=== PATIENT | male | born 1935 | race Caucasian/White ===

== ENCOUNTER 2020-07-08 06:39 | Day surgery (SDC) | payer MEDICARE, OTHER ==
[2020-07-08] MEDS ORDERED: Propofol 200 MG/20 ML SDV IV ONE (06:40)
[2020-07-08] MEDS ORDERED: Sodium Chloride 0.9% 10 ML Syringe FLUSH PRN (06:45)
[2020-07-08] MEDS: Lactated Ringers 1,000 ML IV SCH (07:17)
[2020-07-08] MEDS: Albuterol/Ipratropium 3.0-0.5 MG/3 ML Neb Soln NEB ONE (07:22)
--- NOTE | 2020-07-08 08:20 | PCM.OPNOTE ---
- General Post-Op/Procedure Note Date of Surgery/Procedure: 07/08/20 Operative Procedure(s): egd with cold forceps biopsy Findings: gastritis hiatal hernia Schatzki's ring esophagitis Pre Op Diagnosis: dyspepsia. wt loss Post-Op Diagnosis: gastritis. hiatal hernia. Schatzki's ring. esophagitis [place] [facility] [place]geon: Tom Dockery Anesthesia Provider: Cody Lamb Pathology: stomach and distal esophagus Complications: None Condition: Good Free Text/Narrative:: see dictation [id number]
[2020-07-08 12:24] VITALS: BP 133/68; PULSE 56
--- NOTE | 2020-07-08 17:09 | OR ---
DATE OF OPERATION: 07/08/2020 SURGEON: Tom Dockery MD PROCEDURE PERFORMED: Esophagogastroduodenoscopy with cold forceps biopsy. PREOPERATIVE DIAGNOSIS: History of some dyspepsia and weight loss. POSTOPERATIVE DIAGNOSIS: Gastritis, hiatal hernia, Schatzki ring, and distal esophagitis. INDICATIONS FOR PROCEDURE: This is an 85-year-old white male who was initially referred with a finding of gallstones. On history and exam, they appeared to be asymptomatic. The patient exhibited no fatty food intolerance or pain that was suggestive of biliary colic. He, however, does note that his stomach "is off" and he has some discomfort in the epigastric area. He has noted a weight loss. He was offered and accepted an EGD as part of workup. DESCRIPTION OF OPERATION: After an excellent IV sedation was administered, the bite block was inserted, the flexible endoscope was passed without difficulty down the patient's esophagus into the stomach. Stomach was insufflated. Scope passed through the pylorus, second portion of duodenum, slowly withdrawn, and the following findings were noted. Duodenum was unremarkable. Stomach demonstrated a hiatal hernia, very prominent rugae and some erythema throughout. Biopsies were taken of both the antrum and along the body of the stomach. GE junction measured approximately 35 cm, and there was a Schatzki ring. Biopsies were taken of the Schatzki ring as well as the distal esophagus. The remainder of the esophageal exam was unremarkable. The patient tolerated the procedure well, was taken to recovery room. We will be sending him results by letter. /[id number] KINJAL/TANYA
== END 2020-07-08 09:45 | disposition home or self-care (01) ==
LOC: FB.SDS 06:39
PROVIDERS: ATTEND Surgery
DX: K29.50 Unspecified chronic gastritis without bleeding (principal); K22.2 Esophageal obstruction; K44.9 Diaphragmatic hernia without obstruction or gangrene; I10 Essential (primary) hypertension; E78.2 Mixed hyperlipidemia; G47.33 Obstructive sleep apnea (adult) (pediatric); Z90.49 Acquired absence of other specified parts of digestive tract; Z98.890 Other specified postprocedural states; Z79.899 Other long term (current) drug therapy; Z79.82 Long term (current) use of aspirin; Z88.8 Allergy status to other drugs, medicaments and biological substances
CPT/HCPCS: 00731; 43239; 88305; 88313; 88342; J2704; J7120; J7620-GY

== ENCOUNTER 2022-08-01 20:28 | Emergency (ER) | payer MEDICARE, OTHER ==
[2022-08-01] MEDS ORDERED: Amoxicillin 500 MG Cap PO ONE (20:29)
[2022-08-01] MEDS ORDERED: traMADol 50 MG Tab PO ONE (20:29)
[2022-08-01 21:11] VITALS: BP 137/72; PULSE 74
== END 2022-08-01 22:20 | disposition home or self-care (01) ==
LOC: FB.ED 20:28
DX: R68.84 Jaw pain (principal); K04.7 Periapical abscess without sinus; E78.00 Pure hypercholesterolemia, unspecified; I10 Essential (primary) hypertension; K21.9 Gastro-esophageal reflux disease without esophagitis; Z88.1 Allergy status to other antibiotic agents; Z79.899 Other long term (current) drug therapy; Z79.82 Long term (current) use of aspirin
CPT/HCPCS: 99282; 99283; A9270

== ENCOUNTER 2023-06-28 01:24 | Emergency (ER) | payer MEDICARE, OTHER ==
[2023-06-28] MEDS ORDERED: predniSONE 20 MG Tab PO ONE (01:25)
[2023-06-28] MEDS ORDERED: Albuterol/Ipratropium 3.0-0.5 MG/3 ML Neb Soln NEB ONE (01:58)
[2023-06-28 02:30] LABS: BASOPHILS ABSOLUTE AUTO 0.1 x10-3/uL (0.0-0.3); BASOPHILS PERCENT AUTO 0.7 % (0.3-3.8); EOSINOPHILS ABSOLUTE AUTO 0.2 x10-3/uL (0.0-0.6); EOSINOPHILS PERCENT AUTO 2.2 % (0.1-6.8); HEMATOCRIT 35.3 % (38.3-50.1); LYMPHOCYTES ABSOLUTE AUTO 1.1 x10-3/uL (0.5-4.5); LYMPHOCYTES PERCENT AUTO 14.2 % (15.8-45.3); MEAN CORPUSCULAR HEMOGLOBIN 31.6 pg (27.0-33.3); MEAN CORPUSCULAR HGB CONC 33.9 g/dL (28.7-35.3); MEAN CORPUSCULAR VOLUME 93.1 fL (80.8-98.7); MEAN PLATELET VOLUME 7.1 fL (6.7-11.0); MONOCYTES ABSOLUTE AUTO 0.7 x10-3/uL (0.0-1.2); MONOCYTES PERCENT AUTO 8.9 % (5.5-15.2); NEUTROPHILS ABSOLUTE AUTO 5.7 x10-3/uL (1.7-6.9); PLATELET COUNT,PLT 195 x10(3)uL (117-477); RED BLOOD CELL COUNT 3.79 x10(6)uL (3.90-5.90); RED CELL DISTRIBUTION WIDTH 12.9 % (12.4-15.0); WHITE BLOOD CELL COUNT,WBC 7.7 x10-3/uL (3.2-10.1)
[2023-06-28] MEDS: predniSONE 20 MG Tab ONE ×2 (02:30→02:57)
[2023-06-28 02:33] LABS: BLOOD UREA NITROGEN,BUN 21 mg/dL (7-18); BUN/CREATININE RATIO 17.5 (9-20); CALCIUM 9.1 mg/dL (8.6-10.2); CARBON DIOXIDE,CO2 25 mmol/L (21-32); CHLORIDE,CL 105 mmol/L (100-110); CREATININE 1.2 mg/dL (0.70-1.30); EST CRCL DRUG DOSING (CG) 44.19 mL/min; ESTIMATED GFR 59 mL/min (>60); GLUCOSE RANDOM 156 mg/dL (80-116); POTASSIUM,K 3.7 mmol/L (3.5-5.3); SODIUM,NA 137 mmol/L (135-145)
[2023-06-28 02:39] LABS: A/G RATIO 0.9; ALANINE AMINOTRANSFERASE,ALT 13 U/L (12-36); ALBUMIN 3.3 g/dL (3.2-4.6); ALKALINE PHOSPHATASE 95 IU/L (56-112); ASPARTATE AMNIOTRANSFERASE,AST 6 IU/L (5-25); BILIRUBIN TOTAL 0.4 mg/dL (0.1-1.3); PROTEIN TOTAL,TP 6.8 g/dL (6.0-8.0)
[2023-06-28 03:22] VITALS: BP 106/55; PULSE 63
== END 2023-06-28 03:05 | disposition home or self-care (01) ==
LOC: FB.ED 01:24
DX: J45.909 Unspecified asthma, uncomplicated (principal); I10 Essential (primary) hypertension; E78.00 Pure hypercholesterolemia, unspecified; K21.9 Gastro-esophageal reflux disease without esophagitis; E66.9 Obesity, unspecified; Z68.27 Body mass index [BMI] 27.0-27.9, adult; Z86.16 Personal history of COVID-19; Z88.1 Allergy status to other antibiotic agents; Z79.899 Other long term (current) drug therapy; Z79.82 Long term (current) use of aspirin
CPT/HCPCS: 36415; 80053; 85025; 86140; 99285; J7512; J7620

== ENCOUNTER 2023-09-14 07:37 | Emergency (ER) | payer OTHER, MEDICARE ==
[2023-09-14 07:49] VITALS: PULSE 67
[2023-09-14] MEDS: traMADol 50 MG Tab PO ONE (08:59)
[2023-09-14 09:30] LABS: BLOOD UREA NITROGEN,BUN 21 mg/dL (7-18); BUN/CREATININE RATIO 19.1 (9-20); CALCIUM 9.1 mg/dL (8.6-10.2); CARBON DIOXIDE,CO2 26 mmol/L (21-32); CHLORIDE,CL 103 mmol/L (100-110); CREATININE 1.1 mg/dL (0.70-1.30); EST CRCL DRUG DOSING (CG) 51.34 mL/min; ESTIMATED GFR 65 mL/min (>60); GLUCOSE RANDOM 141 mg/dL (80-116); POTASSIUM,K 4.3 mmol/L (3.5-5.3); SODIUM,NA 137 mmol/L (135-145)
[2023-09-14 09:31] LABS: BASOPHILS PERCENT AUTO 0.6 % (0.3-3.8); EOSINOPHILS ABSOLUTE AUTO 0.1 x10-3/uL (0.0-0.6); EOSINOPHILS PERCENT AUTO 1.3 % (0.1-6.8); HEMATOCRIT 35.9 % (38.3-50.1); HEMOGLOBIN 12.2 g/dL (12.9-17.7); LYMPHOCYTES PERCENT AUTO 12.4 % (15.8-45.3); MEAN CORPUSCULAR HEMOGLOBIN 30.7 pg (27.0-33.3); MEAN CORPUSCULAR HGB CONC 33.9 g/dL (28.7-35.3); MEAN CORPUSCULAR VOLUME 90.4 fL (80.8-98.7); MEAN PLATELET VOLUME 6.8 fL (6.7-11.0); MONOCYTES ABSOLUTE AUTO 0.8 x10-3/uL (0.0-1.2); MONOCYTES PERCENT AUTO 10.1 % (5.5-15.2); NEUTROPHILS PERCENT AUTO 75.6 % (40.3-71.8); PLATELET COUNT,PLT 238 x10(3)uL (117-477); RED BLOOD CELL COUNT 3.97 x10(6)uL (3.90-5.90); RED CELL DISTRIBUTION WIDTH 12.6 % (12.4-15.0)
[2023-09-14 09:32] LABS: BILIRUBIN,URINE NEGATIVE (NEGATIVE); GLUCOSE,URINE NORMAL (NORMAL); KETONES,URINE NEGATIVE (NEGATIVE); LEUKOCYTE ESTERASE,URINE NEGATIVE (NEGATIVE); NITRITE,URINE NEGATIVE (NEGATIVE); OCCULT BLOOD,URINE NEGATIVE (NEGATIVE); PROTEIN,URINE NEGATIVE (NEGATIVE); UROBILINOGEN,URINE NORMAL (NEGATIVE)
[2023-09-14 09:33] LABS: APPEARANCE,URINE CLEAR (CLEAR); COLOR,URINE YELLOW (YELLOW)
[2023-09-14 09:35] LABS: A/G RATIO 0.8; ALANINE AMINOTRANSFERASE,ALT 17 U/L (12-36); ALBUMIN 3.1 g/dL (3.2-4.6); ALKALINE PHOSPHATASE 169 IU/L (56-112); ASPARTATE AMNIOTRANSFERASE,AST 14 IU/L (5-25); BILIRUBIN TOTAL 1.1 mg/dL (0.1-1.3); MAGNESIUM 2.3 mg/dL (1.8-2.5); PROTEIN TOTAL,TP 7.2 g/dL (6.0-8.0)
[2023-09-14 09:38] LABS: BACTERIA,URINE NOT SEEN (NS); RBC,URINE NOT SEEN (0-5); SQUAMOUS EPITHELIAL CELLS,UR NOT SEEN (NS,R,O); WBC,URINE NOT SEEN (0-5)
[2023-09-14 12:37] VITALS: BP 149/73
== END 2023-09-14 12:27 | disposition home or self-care (01) ==
LOC: FB.ED 07:37
DX: G89.29 Other chronic pain (principal); M54.41 Lumbago with sciatica, right side; M54.42 Lumbago with sciatica, left side; M15.9 Polyosteoarthritis, unspecified; E78.00 Pure hypercholesterolemia, unspecified; I10 Essential (primary) hypertension; K21.9 Gastro-esophageal reflux disease without esophagitis; E66.9 Obesity, unspecified; Z88.8 Allergy status to other drugs, medicaments and biological substances; Z79.51 Long term (current) use of inhaled steroids; Z79.82 Long term (current) use of aspirin; Z87.891 Personal history of nicotine dependence; Z68.28 Body mass index [BMI] 28.0-28.9, adult
CPT/HCPCS: 36415; 72131; 74176; 80053; 81001; 83735; 85025; 86140; 99284; A9270-GY

== ENCOUNTER 2025-05-24 16:29 | Emergency (ER) | payer OTHER, MEDICARE ==
[2025-05-24 17:15] LABS: BASOPHILS ABSOLUTE AUTO 0.0 x10-3/uL (0.0-0.3); BASOPHILS PERCENT AUTO 0.5 % (0.3-3.8); EOSINOPHILS ABSOLUTE AUTO 0.1 x10-3/uL (0.0-0.6); EOSINOPHILS PERCENT AUTO 1.6 % (0.1-6.8); LYMPHOCYTES ABSOLUTE AUTO 1.4 x10-3/uL (0.5-4.5); LYMPHOCYTES PERCENT AUTO 17.3 % (15.8-45.3); MEAN PLATELET VOLUME 6.8 fL (6.7-11.0); MONOCYTES ABSOLUTE AUTO 0.8 x10-3/uL (0.0-1.2); MONOCYTES PERCENT AUTO 10.0 % (5.5-15.2); NEUTROPHILS ABSOLUTE AUTO 5.6 x10-3/uL (1.7-6.9); NEUTROPHILS PERCENT AUTO 70.6 % (40.3-71.8); PLATELET COUNT,PLT 322 x10(3)uL (117-477); RED BLOOD CELL COUNT 4.24 x10(6)uL (3.90-5.90); RED CELL DISTRIBUTION WIDTH 13.8 % (12.4-15.0); WHITE BLOOD CELL COUNT,WBC 7.9 x10-3/uL (3.2-10.1)
[2025-05-24 17:19] LABS: BLOOD UREA NITROGEN,BUN 23 mg/dL (7-18); CARBON DIOXIDE,CO2 30 mmol/L (21-32); CHLORIDE,CL 102 mmol/L (100-110); CREATININE 1.4 mg/dL (0.70-1.30); ESTIMATED GFR 49 mL/min (>60); GLUCOSE RANDOM 89 mg/dL (80-116); POTASSIUM,K 4.0 mmol/L (3.5-5.3); SODIUM,NA 140 mmol/L (135-145)
[2025-05-24 17:30] LABS: A/G RATIO 0.8; ALANINE AMINOTRANSFERASE,ALT 25 U/L (12-36); ASPARTATE AMNIOTRANSFERASE,AST 22 IU/L (5-25); BILIRUBIN TOTAL 0.8 mg/dL (0.1-1.3); PROTEIN TOTAL,TP 7.1 g/dL (6.0-8.0)
[2025-05-24 17:40] LABS: GLUCOSE,URINE NORMAL (NORMAL); OCCULT BLOOD,URINE MODERATE (NEGATIVE)
[2025-05-24 17:43] LABS: APPEARANCE,URINE SLIGHTLY CLOUDY (CLEAR)
[2025-05-24 17:44] LABS: SQUAMOUS EPITHELIAL CELLS,UR FEW (NS,R,O)
[2025-05-24 17:55] LABS: INFLUENZA A NAA NEGATIVE (NEGATIVE); INFLUENZA B NAA NEGATIVE (NEGATIVE); RESPIRATORY SYNCYTIAL VIR NAA NEGATIVE (NEGATIVE)
[2025-05-24 18:02] LABS: CORONAVIRUS COVID-19 NAA POSITIVE (NEGATIVE)
[2025-05-24 19:13] VITALS: BP 117/61; PULSE 64
== END 2025-05-24 19:13 | disposition home or self-care (01) ==
LOC: FB.ED 16:29
DX: N39.0 Urinary tract infection, site not specified (principal); S09.90XA Unspecified injury of head, initial encounter; I10 Essential (primary) hypertension; K21.9 Gastro-esophageal reflux disease without esophagitis; J45.909 Unspecified asthma, uncomplicated; M19.90 Unspecified osteoarthritis, unspecified site; E78.00 Pure hypercholesterolemia, unspecified; E66.9 Obesity, unspecified; Z88.1 Allergy status to other antibiotic agents; Z79.82 Long term (current) use of aspirin; Z79.899 Other long term (current) drug therapy; Z90.49 Acquired absence of other specified parts of digestive tract; W01.198A Fall on same level from slipping, tripping and stumbling with subsequent striking against other object, initial encounter
CPT/HCPCS: 36415; 51798; 70450; 71045; 72125; 80053; 81001; 83036; 84484; 85025; 87086; 87637; 96374; 99284-25; J0696; J7030